=== PATIENT | male | born 1970 | race African-American/Black ===

== ENCOUNTER 2016-12-27 12:58 | Emergency (ER) | payer SELFPAY | END 2016-12-27 12:59 | disposition home or self-care (01) | LOC: ER 12:58 | DX: K08.89 Other specified disorders of teeth and supporting structures (principal); F17.200 Nicotine dependence, unspecified, uncomplicated | CPT/HCPCS: 99282 ==

== ENCOUNTER 2017-01-12 12:11 | Emergency (ER) | payer SELFPAY | END 2017-01-12 12:35 | disposition home or self-care (01) | LOC: ER 12:11 | DX: S39.012A Strain of muscle, fascia and tendon of lower back, initial encounter (principal); I10 Essential (primary) hypertension; F17.200 Nicotine dependence, unspecified, uncomplicated; X58.XXXA Exposure to other specified factors, initial encounter | CPT/HCPCS: 72100; 99283 ==